=== PATIENT | female | born 2000 | race Two or more races ===

== ENCOUNTER 2024-03-15 11:25 | Emergency (ER) | payer MEDICAID, OTHER ==
[~2024-03-15] VITALS: Ht 162.6 cm; Wt 70.0 kg
[2024-03-15 12:16] LABS: Urine Bacteria None Seen /hpf (None Seen)
[2024-03-15 12:34] LABS: Urine Blood 2+ /uL (Negative); Urine Clarity Clear (Clear); Urine Color Yellow (Yellow); Urine Mucus FEW (None Seen); Urine Protein, UAD 1+ (Negative); Urine Specific Gravity 1.025 (1.001-1.035); Urine Urobilinogen 3 mg/dL (Negative); Urine WBC 5 /hpf (0 - 5)
[2024-03-15 14:41] LABS: Basophils # (auto) 0 10 ^3/uL (0-0.2); Basophils % (auto) 0.2 % (0.0-2.0); Eosinophils # (auto) 0 10 ^3/uL (0-0.8); Eosinophils % (auto) 0.2 % (0.0-7.0); Hematocrit 38.5 % (36.0-46.0); Hemoglobin 13.3 g/dL (12.2-16.2); Lymphocytes # (auto) 1.5 10 ^3/uL (0.4-5.4); Lymphocytes % (auto) 16.3 % (10.0-50.0); Mean Corpuscular Hemoglobin 32.9 pg (28.0-32.0); Mean Corpuscular Hgb Conc. 34.6 g/dL (32.0-36.0); Mean Corpuscular Volume 95.2 fL (80.0-100.0); Monocytes # (auto) 0.5 10 ^3/uL (0-1.3); Monocytes % (auto) 5.8 % (0.0-12.0); Neutrophils % (auto) 77.5 % (37.0-80.0); Nucleated Red Blood Cells % 0.1 %; Platelet Count (auto) 267 10^3/uL (140-450); Red Blood Cells 4.05 10^6/uL (4.0-5.20)
[2024-03-15 15:00] LABS: Alanine Aminotransferase 19 U/L (7-40); Albumin 4.1 g/dL (3.2-4.8); Alkaline Phosphatase 50 U/L (46-116); Anion Gap 7 (5-15); Aspartate Aminotransferase 15 U/L (13-40); BUN/Creatinine Ratio 10.7 (10.0-20.0); Blood Urea Nitrogen 6 mg/dL (9-23); Calcium 9.5 mg/dL (8.7-10.4); Carbon Dioxide 26 mmol/L (20-30); Chloride 105 mmol/L (98-107); Glucose 83 mg/dL (74-106); Potassium 3.8 mmol/L (3.5-5.1); Sodium 138 mmol/L (136-145)
[2024-03-15 15:01] LABS: Bilirubin, Total 0.4 mg/dL (0.2-1.0); Total Protein 6.9 g/dL (5.7-8.2)
[2024-03-15 15:32] VITALS: BP 110/72; PULSE 76; RESP 16; TEMP 98.4; O2SAT 98
== END 2024-03-15 17:12 | disposition home or self-care (01) ==
LOC: ER 11:25
DX: O69.4XX0 Labor and delivery complicated by vasa previa, not applicable or unspecified (principal); R10.2 Pelvic and perineal pain; O20.9 Hemorrhage in early pregnancy, unspecified; Z3A.17 17 weeks gestation of pregnancy; Z79.899 Other long term (current) drug therapy
CPT/HCPCS: 36415; 76805; 76817; 80053; 81001; 84702; 85025; 86850; 86900; 86901